=== PATIENT | male | born 1940 | race Caucasian/White ===

== ENCOUNTER 2019-01-20 14:16 | Inpatient (IN) ==
[2019-01-20 15:31] LABS: BASO# 0.02 X1000 (0.0-0.2); BASO% 0.2 % (0.0-0.8); HEMATOCRIT 31.4 % (42.0-52.0); HEMOGLOBIN 10.1 g/dL (14.0-18.0); IMM GRAN# 0.02 X1000 (0.0-0.04); IMM GRAN% 0.2 % (0.0-0.5); LYMPH% 5.5 % (20.5-51.1); MCH 28.8 PG (27-31); MCHC 32.2 g/dL (33-37); MCV 89.5 FL (81-99); MONO# 0.84 X1000 (0.11-0.59); MONO% 7.7 % (1.7-9.3); MPV 10.6 FL (7.4-10.4); NEUT# 9.42 X1000 (1.4-6.5); NEUT% 86.4 % (42.2-75.2); PLT 176 X1000 (130-400); RBC 3.51 XMIL (4.7-6.1); RDW 14.3 % (11.5-14.5)
[2019-01-20 16:12] LABS: ALB/GLOB RATIO 1.4; CALCIUM 10.1 mg/dL (8.8-10.2); CREATININE 5.5 mg/dL (0.7-1.2); POTASSIUM 5.3 mmol/L (3.5-5.1); TOTAL BILIRUBIN 1.08 mg/dL (0.20-1.00); TOTAL PROTEIN 6.8 g/dL (6.3-8.3)
[2019-01-20] MEDS ORDERED: LASIX IV ONE (16:23)
[2019-01-20] MEDS ORDERED: EMLA CREAM TOP ONE (16:24)
[2019-01-20] MEDS ORDERED: NITROGLYCERIN TOP ONE (16:27)
--- NOTE | 2019-01-20 16:49 | Diag Imaging Result Doc PS360 ---
EXAM: CHEST-PORTABLE HISTORY: increased work of breathing TECHNIQUE: Portable chest single view COMPARISON: None. FINDINGS: The lungs are well expanded. The heart is enlarged. The vessels are distended. Sternal wires are present. There are no infiltrates. No effusion identified. IMPRESSION: Cardiomegaly with pulmonary edema. Electronically signed by Giovany Love 01/20/2019 4:46 PM
[2019-01-20] MEDS ORDERED: LASIX 200 MG in NS 25 ML IV ONE (17:00)
[2019-01-20] MEDS: ASPIRIN PO SCH (17:15)
[2019-01-20 17:36] LABS: IRON SATURATION 5 %; TIBC 249 ug/dL; TOTAL IRON 13 ug/dL (53-167); UNBOUND IRON 236 ug/dL (112-346)
--- NOTE | 2019-01-20 17:49 | HISTORY AND PHYSICAL ---
TAG METER OPERATOR: Dr. Marv Chavarria. CHIEF COMPLAINT: Shortness of breath. HISTORY OF PRESENT ILLNESS: Mr. Escobar is a 78-year-old male with a history of CKD-[address] Chavarria. He had a fistula placed by Dr. Neives here in October in preparation for likely dialysis. Over the past week he has been having more shortness of breath and decreased appetite, and this became acutely worse this morning. He was reportedly having some shortness of breath, to the point where they felt they needed to call Dr. Chavarria, who ultimately directed the patient here. He denies lower extremity edema or CP but does endorse significant orthopnea and ESTRELLA. In the ER he had labs and diagnostics done which revealed a creatinine of 5.5 with very mild hyperkalemia at 5.3 with modest acidosis and a gap of 17, and he is slightly anemic. Chest x-ray and EKG are pending. Dr. Chavarria has been notified the patient will be admitted for further treatment and evaluation. PAST MEDICAL HISTORY: 1. CKD stage 5. 2. Coronary artery disease status post CABG. 3. Carotid artery disease status post left carotid endarterectomy. 4. Hypertension. 5. Hyperlipidemia. 6. Gout. 7. GERD. PAST SURGICAL HISTORY: Carotid endarterectomy, CABG and AV fistula placement. SOCIAL HISTORY: He quit smoking multiple years ago. No current tobacco, alcohol or drug use. He is . is at the bedside. FAMILY HISTORY: Mother from "hardening of the arteries." Father was hit by a train. REVIEW OF SYSTEMS: Fourteen-point review of systems was obtained and found to be negative with the exception of the HPI. ALLERGIES: No known drug allergies. HOME MEDICATIONS: Yet to be compiled by the nursing staff. PHYSICAL EXAMINATION: VITAL SIGNS: Blood pressure 166/77, heart rate 94, respiratory rate 21, O2 saturation 93% on room air, temperature 98.9. GENERAL: This is an elderly, somewhat [id number] 78-year-old male lying in the hospital bed in no acute distress. NEUROLOGIC: Somewhat lethargic but opens his eyes easily to verbal stimuli. He is oriented. He follows commands without focal deficits. HEENT: Head is atraumatic and normocephalic. His pupils are equal, round, and reactive to light. His oral mucosa is moist. Trachea is midline. There is no JVD. CHEST: Very mild crackles in the bases with diminished air flow. CV: Regular rate and rhythm. S1 and S2 noted. GI: Soft, nondistended, nontender. Bowel sounds are positive. EXTREMITIES: No edema. Pulses 1+ bilaterally. DIAGNOSTIC DATA: Chest x-ray and EKG are pending. WBCs 10.9, hemoglobin 10.1, hematocrit 31.4, platelet count 176. Sodium 135, potassium 5.3, chloride 101. CO2 is 17, anion gap 17, BUN 61, creatinine 5.5, glucose 111. Calcium 10.1. Bilirubin 1.08. AST 12, ALT 12, alkaline phosphatase 102, albumin 4. ASSESSMENT/PLAN: 1. Chronic kidney disease stage 5 with mild volume overload: The patient will be admitted. We will consult Dr. Chavarria for initiation of dialysis. He is slightly acidotic and slightly hyperkalemic, but this should be adjusted appropriately with dialysis. He also has mild anemia. We will check iron studies and treat accordingly. Monitor his input and output. 2. Volume overload and dyspnea on exertion: Likely secondary to his chronic kidney disease; however, he does have a history of coronary artery disease and does not appear to have had a cardiac workup in some time. Will check his cardiac enzymes, EKG and echocardiogram. We have also ordered a chest x-ray. Volume management per nephrology. 3. Coronary artery disease: The patient denies any chest pain. We will make sure he is on at least a baby aspirin. Continue his home medications and check a lipid panel in the morning. 4. Hypertension. Continue home medications. Nitroglycerin has been added by Nephrology. 5. Hyperlipidemia: Stable. Continue home medications. 6. Deep venous thrombosis prophylaxis with sequential compression devices. Further recommendations to follow. Dictated by MARIA DEL ROSARIO Encarnacion for Jason Schofield MD cc: MARIA DEL ROSARIO Encarnacion Agree with above. The following is my own face to face assessment and evaluation. Patient with slowly progressing kidney disease presenting with dyspnea and orthopnea getting worse over the last week. on exam, no lower extremity edema but does have some bibasilar crackles. given orthopnea and cardiac history, will assess for cardiac etiology while nephrology prepares to dialyze patient. [facility]
[2019-01-20 17:55] LABS: FERRITIN 225 ng/mL (30-400)
--- NOTE | 2019-01-20 18:00 | NEPHROLOGY CONSULTATION ---
DATE: 01/20/2019 REASON FOR ADMISSION: Increased work of breathing with lethargy. REASON FOR CONSULT: End-stage renal disease with assistance with medical management. CONSULTING PHYSICIAN: Dr. Flores with the hospitalist following. HISTORY OF PRESENT ILLNESS: Mr. Escobar is a 78-year-old white male who is known to our outpatient services for chronic kidney disease stage 5. The patient has had a left upper arm AV fistula placed in [place] [address] Jean Marie Gaitan. He has been followed monthly in our office with monthly labs. His last creatinine within our office was at 6.3 with a GFR of less than 6%. He has known heavy proteinuria, but no complaints of uremic symptoms on his last visit on 12/30/2018. The patient states he had just had labs drawn yesterday. He had been eating well, woke up in the middle of the night with increased work of breathing. He denies any chest pain with this. He denies any lower extremity swelling. He has not eaten all day long, did not feel like taking his medications, has been very lethargic, unable to get comfortable. He denies any fever or chills. No nausea, vomiting or diarrhea. No hematochezia, hemoptysis or hematuria. States that his urine output has increased and he has been going quite often. Due to these findings, his called our office earlier this a.m. requesting consult in regards with how she should proceed. The patient lives in [place]. He does see Dr. Valentin, his roofing laborer in the [place]. Due to these findings and patient now becoming symptomatic with possible uremic symptoms, we have advised them to either transport him to [facility] or if it was emergent to call an ambulance, transport him to the nearest hospital for evaluation and stabilization and then transport to [facility] so we could initiate hemodialysis. ended up calling back stating that she was going to wait for her daughter and bring him into [facility] for monitoring. He arrived this afternoon. Dr. Chavarria had received a phone call from Dr. Flores indicating that the patient was currently in the hospital. In the emergency room, he continued to exhibit increased work of breathing. Slight indication that he was using some accessory muscles for breathing. Saturation on room air was 92- 94%. His blood pressure was fairly stable, though very, very weak and would close his eyes and drift during communication with his . PAST MEDICAL HISTORY: He is known for chronic kidney disease stage 5, hypertension, gout, edema, hyperlipidemia, anemia of chronic disease, heavy proteinuria, hyperparathyroidism and coronary artery disease. PAST SURGICAL HISTORY: Noted CABG in 2013, left upper arm fistula placed in October [address] Gaitan. SOCIAL HISTORY: He is . He lives in [place] with his spouse. He has family who are attentive to his care. He is an ex-smoker. Denies any alcohol or illicit drug use. The patient had his flu vaccine in August 2018 and his pneumonia vaccine several years ago. His is unsure of the date. CURRENT DRUG ALLERGIES: Listed as no known drug allergies. HOME MEDICATIONS: Listed in our office: Norvasc 5 mg daily, Coreg 12.5 mg b.i.d., clonidine 0.1 mg b.i.d., aspirin 81 mg daily, Lipitor 20 mg 1/2 tablet daily, Lasix 40 mg daily, ergocalciferol 50,000 units p.o. weekly, losartan 100 mg p.o. daily, allopurinol 100 mg p.o. daily, Integra Plus 125 mg/1 mg p.o. daily, allopurinol 100 mg p.o. daily. REVIEW OF SYSTEMS: Times 10 with pertinent positives listed above in the HPI. VITAL SIGNS: Patient's most recent vital signs in the emergency room: Last temperature 98.7, blood pressure 166/77, heart rate 104, respirations are 24. On room air he was 94%.. LAB: Sodium 135, potassium 5.3, chloride 101, CO2 17, BUN 61, creatinine 5.5, glucose 111. His anion gap is 17, calcium 10.1, albumin 4. White count 10.9, hemoglobin 10.1, hematocrit 31.4 with a platelet count of 176,000. The patient has had nothing indicated in or out during his hospitalization. Chest x-ray has been ordered, indicating cardiomegaly with current pulmonary edema. PHYSICAL EXAMINATION: General: This is a 78-year-old white male who is currently resting quietly in bed. He appears chronically ill. He is in no acute distress. Skin: Warm and dry. HEENT: Normocephalic, atraumatic. Conjunctiva is pale. He has FAITH. Mucous membranes are dry. Neck: Supple. Trachea midline. No evidence of JVD. Cardiovascular: Regular rate and rhythm. No murmur or gallop appreciated. Lungs: Diminished breath sounds with poor inspiratory effort, with some use of accessory muscles to his upper chest wall. He is currently on room air. Abdomen: Soft, nontender. Positive bowel sounds. Genitourinary: Not inspected. Patient states that he has been voiding. Extremities: He has no edema. No clubbing or cyanosis. Integumentary: No rashes or lesions evident. Neurologic: He is alert and oriented x3. ASSESSMENT AND PLAN: 1. Chronic kidney disease stage 5. Patient has exhibited uremic symptoms in the last 24 hours. Left upper arm fistula is intact with good palpable thrill. Due to these findings, we will plan to start dialysis in the morning. We will order EMLA cream to be placed 30 minutes prior to his treatment on his left upper arm fistula. 2. Electrolytes and acid-base balance. The patient has mild hyperkalemia. No indications for intervention. 3. Acidosis. The patient is mildly acidotic with a slight anion gap, again with correction on dialysis in the morning. 4. Anemia. This is acceptable. Hemoglobin of 10.1. 5. Pulmonary edema on chest x-ray with cardiomegaly. We will start an IV. We will saline lock it. We will plan to give 200 mg of Lasix IV push x 1 with plan for fluid volume control in the a.m. with dialysis. To assist with his breathing, we will place oxygen on him at 2 L nasal cannula to titrate as needed. We will place nitroglycerin 1 inch paste on the patient at this time and will re-evaluate in the morning. I would like to thank you for allowing us to follow with this patient. Dictated by MARIA DEL ROSARIO Johnson for Marv Chavarria MD Face to face encounter, data reviewed, discussed with Destin Mahan on 01/20/19. I agree with the above assessment and plan of care. cc: MARIA DEL ROSARIO Johnson MD [facility]
[2019-01-20 18:09] LABS: CK INDEX 19.6 (0.0-2.5); CK-MB 49.92 ng/mL (0.0-5.0); INR 1.1
[2019-01-20] MEDS: XOPENEX NEB INH SCH (18:43)
[2019-01-21] MEDS: XOPENEX NEB INH SCH ×7 (00:21→23:24)
[2019-01-21 02:04] LABS: CK INDEX 19.2 (0.0-2.5); CK-MB 65.75 ng/mL (0.0-5.0)
[2019-01-21] MEDS ORDERED: TIGHT: 0.2 ML/HR FOR DIALYSIS MISC PRN (06:12)
[2019-01-21] MEDS ORDERED: NS 2,000 ML MISC PRN (06:12)
[2019-01-21] MEDS ORDERED: HEPARIN IV PRN (06:12)
[2019-01-21 07:31] LABS: ALBUMIN 3.9 g/dL (3.5-5.0); CALCIUM 10.1 mg/dL (8.8-10.2); CREATININE 5.8 mg/dL (0.7-1.2); PHOSPHORUS 5.1 mg/dL (2.7-4.5)
--- NOTE | 2019-01-21 09:04 | NEPHROLOGY PROGRESS NOTE ---
DATE: 01/21/2019 TIME SEEN: 0650. SUBJECTIVE: Mr. Escobar is resting quietly in bed. Head of the bed is elevated. He states that he is still not feeling well. He remains short of breath. states that he was not eating his dinner yesterday. OBJECTIVE: Vitals: His most recent vital signs, temperature 98.9 degrees, blood pressure 166/92, heart rate 114, respirations 20, he is on 2 L nasal cannula, last recorded saturation 94%. General: This is a 78-year-old elderly white male. He is resting quietly in bed. He appears chronically ill. No acute distress. Skin: Warm and dry. HEENT: Normocephalic, atraumatic. Conjunctiva is pale. He has FAITH. Mucous membranes are dry. Neck: Supple. Trachea midline. Positive JVD. Cardiovascular: Regular rate and rhythm. He is slightly tachycardic. He has a systolic murmur. Lungs: Faint crackles bilaterally. Remains on O2 support. Abdomen: Soft, nontender, positive bowel sounds. Genitourinary: Not inspected. Patient has been voiding. Adequate amount documented. Extremities: 1+ lower extremity edema. He has a fistula to the left upper arm with good palpable thrill. Integumentary: Patient has no rashes or lesions. Neurological: He is alert and oriented x3. INPUT AND OUTPUT: He has had 180 in, 675 mL out to void. LABORATORY DATA: Sodium 141, potassium 5, chloride 104, CO2 17, BUN 68, creatinine 5.8, glucose is 100, anion gap of 20, calcium 10.1, phosphorus 5.1, albumin is 3.9. The patient has slightly elevated troponins. He has a previous hemoglobin of 10.1 on admission. ASSESSMENT AND PLAN: 1. Chronic kidney disease stage 5. Patient has exhibited uremic symptoms in the last 24 to 48 hours. We will plan to start dialysis this morning. He is ordered for EMLA cream to be applied to his fistula 30 minutes prior to going down for dialysis. We will place him on a 2 K bath he is to dialyze for 2 hours low flow. We will attempt to pull 1 to 2 L of ultrafiltration with plan for dialysis over the next 2 to 3 days. 2. Electrolytes and acid-base balance, again with correction on dialysis. 3. Anemia, this is acceptable. 4. Fluid volume overload. Patient's chest x-ray yesterday showed pulmonary edema. We had given him 200 mg of Lasix IV push. He remains on O2. We will plan for assist with dialysis today and over the next 3 days for his fluid volume level. I would like to thank you for allowing us to follow with this patient. Dictated by MARIA DEL ROSARIO Johnson for Marv Chavarria MD Face to face encounter, data reviewed, discussed with Destin Mahan on 01/21/19. I agree with the above assessment and plan of care. cc: MARIA DEL ROSARIO Johnson MD [facility]
[2019-01-21] MEDS: ASPIRIN PO SCH (10:45)
--- NOTE | 2019-01-21 11:55 | EKG Report ---
Test Performed on : 01/21/2019 11:48:08 AM Test Reason : ELEVATED TROPONIN Blood Pressure : / mmHG Vent. Rate : 106 BPM Atrial Rate : 106 BPM P-R Int : 212 ms QRS Dur : 106 ms QT Int : 336 ms P-R-T Axes : 024 035 167 degrees QTc Int : 446 ms Sinus tachycardia. with 1st degree AV block. Possible Left atrial enlargement Incomplete left bundle branch block Marked ST abnormality, possible lateral subendocardial injury Abnormal ECG No previous ECGs available Unconfirmed Result
[2019-01-21] MEDS ORDERED: LOPRESSOR PO SCH (15:00)
--- NOTE | 2019-01-21 15:16 | PROGRESS NOTE ---
DATE: 01/21/2019 INTERVAL HISTORY: The patient still with some orthopnea. Breathing fairly comfortable when he is still sitting up. No current chest pain, diaphoresis, fever, or chills. No new complaints. No acute events overnight. Patient does have trending troponin as below. REVIEW OF SYSTEMS: A 12 point Review of Systems is negative except as per interval history. LABORATORY: Sodium 141, potassium 5.0, bicarb 17, BUN 68, creatinine 5.8, glucose 100, and phosphorus 5.1. Initial troponin 0.6. The second troponin is 1.19, the third troponin 1.6. Lipid panel unremarkable. B12, folate, and TSH all unremarkable. EKG with ST depression in lateral leads specifically the 4, [address] depression in aVF. VITAL SIGNS: T-max 99.4 degrees, pulse 109, respirations 18, blood pressure 150/75, and O2 saturation 93 percent on 2 L by nasal cannula. PHYSICAL EXAMINATION: General: No acute distress. Vitals: As above. He does become somewhat short of breath with minimal exertion. HEENT: Normocephalic. Atraumatic. Moist mucous membranes. No cervical adenopathy. Cardiovascular: Minimally tachycardic but regular. No murmurs noted. Pulmonary: Mild bibasilar crackles remain. Otherwise lungs clear to auscultation bilaterally. Abdomen: Soft. Nontender and nondistended. Bowel sounds positive. Extremities: Peripheral pulses are intact, really no lower extremity edema. Neurologic: Cranial nerves grossly intact. No focal deficits identified. Psychiatric: Normal mood and affect. Awake, alert and oriented x3. Skin: No new rashes or lesions identified. ASSESSMENT AND PLAN: 1. CKD 5 with overload. The patient with slowly worsening of his chronic kidney disease, symptoms of orthopnea and dyspnea, possibly related to worsening kidney function versus cardiac dysfunction. Dr. Chavarria on board and planning to initiate dialysis for volume overload and metabolic acidosis. Continue to monitor input and output. 2. NSTEMI. The patient with symptoms of worsening orthopnea and dyspnea over the last week that may be related to kidney dysfunction, but some concern for cardiac etiology. Initial troponin elevated at 0.6. This trended up since then to 1.6. EKG this morning showing ST depression in lateral leads. Echo ordered, but pending. Cardiology consulted last night. Recommendations pending. 3. Coronary artery disease. No chest pain but does have some symptoms concerning for heart failure as above. Continue aspirin and we will restart home statin. 4. Hypertension. We will restart home Norvasc and losartan. Hold home clonidine. Hold home Coreg for now given the possibility of decompensated heart failure, but based on echo results will likely resume in the next day or 2. 5. Hyperlipidemia. Continue on statin. 6. DVT prophylaxis. SCD's currently.
--- NOTE | 2019-01-21 15:40 | CONSULTATION ---
DATE OF CONSULTATION: 01/21/2019 IMPRESSION: 1. Abnormal troponin suggesting small non-ST elevation myocardial infarction. This is occurring in the setting of volume overload related to renal failure and history of previous coronary bypass surgery in 2004. Suspect likely secondary to demand ischemia from volume overload/wall strain in the setting of significant coronary atherosclerosis. 2. Volume overload/congestive heart failure in the setting of renal failure. 3. Atherosclerotic coronary disease with coronary bypass surgery 2004. 4. Hypertension. 5. Hyperlipidemia. 6. Atherosclerotic carotid disease with history of left carotid endarterectomy. RECOMMENDATIONS: 1. Continue beta niurka and increase as tolerated. We will resume Coreg. 2. Continue statin. 3. Echocardiography. 4. Agree with plans to pursue dialysis as soon as possible to address volume overload. This will hopefully diminish myocardial demand. 5. Ultimately patient will need re-evaluation of his coronary disease. HISTORY: This 78-year-old white male with past history of previous coronary bypass surgery 2004, chronic kidney disease stage V, hypertension, hyperlipidemia, and previous left carotid endarterectomy was admitted with several months of progressive tendency for shortness of breath. This has gotten worse in the last several days as he started to have orthopnea as well. His appetite is very poor. He has been found to have evidence of volume overload/congestive heart failure and deterioration in his renal function. He has been known to be progressing towards end- stage renal disease, and has a fistula placed already. Plans are for him to pursue dialysis today. He denies any chest pain. He has had some orthopnea for the last 3 days. He is normally followed by Dr. Valentin in [place] for his coronary disease. PAST MEDICAL HISTORY: 1. Atherosclerotic coronary disease with previous coronary bypass surgery 2004. 2. Atherosclerotic carotid disease with previous left carotid endarterectomy. 3. Chronic kidney disease stage V. 4. Hypertension. 5. Hyperlipidemia. 6. Gout. 7. Gastroesophageal reflux disease. PAST SURGICAL HISTORY: Also includes AV fistula placement. ALLERGIES: He has no known drug allergies. MEDICATIONS PRIOR TO ADMISSION: As listed. SOCIAL HISTORY: He quit smoking multiple years ago. He does not currently use tobacco or alcohol. He is . He lives in [place], [place]. FAMILY HISTORY: Positive for coronary disease. REVIEW OF SYSTEMS: Pulmonary: Noteworthy for progressive dyspnea, as well as some tendency for wheezing. Gastrointestinal: Negative. Constitutional: Noteworthy for malaise and poor appetite. Remaining review of systems negative/noncontributory with 14 total systems reviewed. PHYSICAL EXAMINATION: General: This is an older white male in no distress. Vital signs: Blood pressure 166/80, heart rate 109, oxygen saturation 97% on nasal cannula oxygen at 2 liters/minute. HEENT: Extraocular movements appear intact. Mucous membranes are moist. Neck: Supple. Jugular venous distention is evident consistent with elevated central venous pressure. Chest: Auscultation of the chest reveals a few bibasilar crackles. Cardiac Exam: Reveals a regular rate and rhythm without appreciable murmur or gallop. Abdomen: Soft. Bowel sounds audible. Extremities: Demonstrate mild pretibial edema. Neurologic exam: Reveals him to be alert and fully oriented. Speech is fluent. Moves all 4 extremities equally well. PERTINENT DATA: Twelve-lead EKG demonstrates sinus tachycardia with first degree AV block. Left atrial abnormality. Incomplete left bundle-branch block and ST abnormality, consider lateral ischemia. LABORATORY DATA: Includes a sodium 141, potassium 5.0, chloride 104, carbon dioxide 17. BUN 68, creatinine 5.8, glucose 100. White blood cell count 10.9, hematocrit 31.4, hemoglobin 10.1, platelet count 176. Initial troponin 0.607; followup troponin 1.6. Initial CPK 255; followup CPK 343. CPK MB initially 49.92 (index 19.6) with followup CPK MB 65.75 (MB index 19.2). Triglyceride 68, total cholesterol 103, LDL cholesterol 38, HDL cholesterol 56. TSH 1.46. cc: Henry Marie MD
--- NOTE | 2019-01-21 16:10 | ECHO REPORT ---
ORDER DATE: 01/20/2019 ECHOCARDIOGRAPHIC MEASUREMENTS: Interventricular septum 1.5 cm. Left ventricular posterior wall 1.5 cm. Diastolic diameter 4.8 cm. Left atrium 4.4 cm. Aorta 3.3 cm. SUMMARY OF THE 2-DIMENSIONAL IMAGING: Aortic valve leaflets are trileaflet. Mitral valve was normal. There is mitral annular calcification. There is left atrial enlargement. Tricuspid valve is normal. There is mild mitral regurgitation. Peak velocity across the aortic valve less than 2 m/sec. There is no aortic stenosis or regurgitation. There is mild tricuspid regurgitation. Peak velocity across the tricuspid valve was 2.5 m/sec. Definity was used to assess left ventricular systolic function. Normal left ventricular cavity size. There is concentric left ventricular hypertrophy with severely reduced systolic function, estimated ejection fraction of 25%. There is severe global hypokinesis, associated with diastolic dysfunction. cc: MD Doug Clements CRNP
[2019-01-21] MEDS: COREG PO SCH ×2 (18:15→22:07)
--- NOTE | 2019-01-21 19:39 | CONSULTATION ---
DATE OF CONSULTATION: 01/21/2019 HISTORY OF PRESENT ILLNESS: Rober Escobar is a 78-year-old white male who has end-stage renal disease and requires chronic hemodialysis. Dr. Gaitan placed a left forearm AV fistula which has flow but is not ready to be used. He needs acute dialysis, and we are asked to place a PermCath. PHYSICAL EXAMINATION: General: Mr. Rober Escobar is an older white male who does not feel well. He has no jaundice. No supraclavicular lymphadenopathy. No shortness of breath. Heart: Regular rate. Lungs: Clear. Abdomen: Soft, nontender, without palpable mass. He has a left- sided fistula. Rectal: Not performed. Extremities: He does have palpable peripheral pulses. No peripheral edema. Neurological: He is alert and oriented x3 and appropriate. IMPRESSION: End-stage renal disease requiring hemodialysis. PLAN: PermCath tomorrow in surgery. I have discussed the procedure in detail with the patient, his and daughter at the bedside. They understand there are risks of this operation including infection, bleeding, pneumothorax, and nonfunctional PermCath. They want to proceed. cc: Sonya Gonzalez MD
[2019-01-21] MEDS: LIPITOR PO SCH (22:06)
[2019-01-22] MEDS: XOPENEX NEB INH SCH ×6 (03:42→23:01)
[2019-01-22] MEDS ORDERED: TIGHT: 0.2 ML/HR FOR DIALYSIS MISC PRN (05:57)
[2019-01-22] MEDS ORDERED: NS 2,000 ML MISC PRN (05:57)
[2019-01-22] MEDS ORDERED: HEPARIN IV PRN (05:57)
[2019-01-22 07:01] LABS: ALBUMIN 3.2 g/dL (3.5-5.0); CALCIUM 9.9 mg/dL (8.8-10.2); CREATININE 6.1 mg/dL (0.7-1.2); PHOSPHORUS 5.1 mg/dL (2.7-4.5); POTASSIUM 4.3 mmol/L (3.5-5.1)
[2019-01-22] MEDS ORDERED: DIPRIVAN 1% ONE (07:03)
[2019-01-22] MEDS ORDERED: XYLOCAINE-MPF 2% ONE (07:04)
[2019-01-22] MEDS ORDERED: HEPARIN ONE (07:07)
[2019-01-22] MEDS ORDERED: XYLOCAINE-MPF 1%/EPI 1:200,000 ONE (07:11)
[2019-01-22] MEDS ORDERED: NS 250 ML ONE (07:11)
[2019-01-22] MEDS ORDERED: FENTANYL ONE (07:21)
[2019-01-22] MEDS ORDERED: VERSED ONE (07:22)
[2019-01-22] MEDS ORDERED: NORVASC PO SCH ×2 (09:00)
[2019-01-22] MEDS ORDERED: KEFZOL 1 GM/D5W 1 GM/50 ML IVPB ONE (09:34)
--- NOTE | 2019-01-22 10:43 | OPERATIVE NOTE ---
PROCEDURE DATE: 01/20/2019 PREOPERATIVE DIAGNOSIS: End-stage renal disease requiring hemodialysis. POSTOPERATIVE DIAGNOSIS: End-stage renal disease requiring hemodialysis. PRINCIPAL PROCEDURE: Right internal jugular PermCath using ultrasound and fluoroscopy. SURGEON: Sonya Gonzalez MD. ANESTHESIA: Local with IV sedation. ESTIMATED BLOOD LOSS: 30 mL. DRAINS: None. INDICATIONS: Rober Hidalgo is a 78-year-old white male who has developed end-stage renal disease. Dr. Gaitan has placed a left forearm AV fistula that is still flowing but is not ready to use. He needs dialysis now and we were asked to place access. DESCRIPTION OF PROCEDURE: The patient was brought to the operating room, placed supine. His right neck, shoulder, and anterior chest were prepped and draped in a sterile field. He did receive Ancef prophylactically. We used local anesthetic at our incision sites. I began by using ultrasound to identify the right internal jugular vein between the 2 heads of the of the right sternocleidomastoid muscle. Using ultrasound guidance, I directed an 18-gauge needle into the right internal jugular vein and through this needle I placed a guidewire into the right side of the heart with the help of fluoroscopy. I made a counterincision on the anterior right chest and then used a blunt tunneler to tunnel a precurved 19 cm in total length PermCath from the chest incision to the neck incision. I then placed sequential dilators over the guidewire. Then I placed a dilator and sheath over the guidewire into the superior vena cava. The wire and dilator were removed and through the sheath, I placed the distal end of our pre curved PermCath and peeled away the sheath so that the catheter was in the superior vena cava. It was functioning well. Both ports were flushed with heparin and saline. Fluoroscopy suggested a good position of our catheter. I secured the catheter at its exit site anterior right chest with two 2-0 nylon stitches and I closed the small incision base of right neck, in layers, 1st layer 3-0 Vicryl stitches to close subcutaneous tissue. Skin was closed with a 4-0 Monocryl subcuticular stitch. Dressings were applied. He tolerated the procedure well with plans for him to go the recovery room and then return to the floor. cc: Sonya Gonzalez MD
[2019-01-22 13:18] LABS: HEPATITIS PROFILE ACUTE SEE COMMENTS
[2019-01-22] MEDS ORDERED: EMLA CREAM TOP PRN (14:08)
--- NOTE | 2019-01-22 14:22 | PROGRESS NOTE ---
DATE: 01/22/2019 INTERVAL HISTORY: The patient's orthopnea and dyspnea with minimal exertion remain essentially unchanged, possibly minimally improved with Lasix. The patient went for replacement of Vas-Cath for this morning as his previous dialysis catheter was not functioning correctly. This was performed without difficulty, and the patient was seen while on dialysis. No new complaints. No other acute events. REVIEW OF SYSTEMS: A 12 point review of systems negative except as per Interval History. LABORATORY DATA: Basic metabolic panel with bicarbonate 18, BUN 77, creatinine 6.1, phosphorus 5.1, albumin 3.2. Chemistry otherwise. VITALS: Temperature maximum 99.3 degrees, pulse 94, respirations 20, blood pressure 133/49, O2 saturation 96% on 2 L by nasal cannula DISCHARGE PHYSICAL EXAMINATION: General: No acute distress. Slightly sleepy but easily arousable. Vitals: As above. HEENT: Normocephalic, atraumatic. Moist mucus membranes. Neck: No cervical adenopathy. Cardiovascular: Regular rate and rhythm with no murmurs, rubs, or gallops. Pulmonary: Mild bibasilar crackles, essentially unchanged. Lungs otherwise clear to auscultation. Abdomen: Soft, nontender, nondistended. Bowel sounds positive. Extremities: Peripheral pulses intact. No lower extremity edema. Dialysis catheter in right upper chest noted. Neurologic: Cranial nerves grossly intact. No focal deficits identified. Psychiatric: Normal mood and affect. Slightly drowsy but awake and easily further arouses. Oriented x3. Skin: No new rash or lesions noted. ASSESSMENT AND PLAN: 1. Chronic kidney disease (CKD) stage 5 with volume overload. The patient with slow worsening of his chronic kidney disease with symptoms of orthopnea and dyspnea and a chest x-ray showing pulmonary edema. Has clinically apparent volume overload. Likely related to worsening kidney function, but may have a cardiac aspect as well as below. Dr. Chavarria on board and dialyzing today. Continue to monitor. Strict intakes and outputs. 2. Dhe-QS-evybmgxhw myocardial infarction (NSTEMI). Patient with symptoms of worsening orthopnea and dyspnea over the week prior to admission. Some concern for cardiac etiology. Initial troponin elevated at 0.6, which trended up to 1.6. EKG did show some ST depression in lateral leads. Cardiology on board and planning on conservative management for now. Echocardiogram showing an estimated ejection fraction of 25, so he may have a component of acute systolic congestive heart failure as well. Will likely need re-evaluation of his heart once volume overload has improved and kidney function addressed. 3. Coronary artery disease. No chest pain, but symptoms concerning for heart failure as above. EF 25. Continue aspirin and statin. Once patient is stabilized, we will add beta-niurka and MALOU or ARB. 4. Hypertension. Restarted home Norvasc. Holding home clonidine. Once kidneys are stabilized, then will likely restart home losartan. 5. Hyperlipidemia. Continue statin. 6. Deep vein thrombosis (DVT) prophylaxis. SCDs. DARYL
--- NOTE | 2019-01-22 15:12 | NEPHROLOGY PROGRESS NOTE ---
DATE: 01/22/2019 TIME SEEN: 0650. SUBJECTIVE: Mr. Escobar is resting quietly in bed. His is currently resting in the bed beside him. He states that he was unable to tolerate dialysis yesterday. He is scheduled to go to surgery this a.m. for placement of dialysis tunnel catheter and allow his fistula to rest and heal. He is n.p.o. OBJECTIVE: MOST RECENT VITAL SIGNS: Patient's last temperature 98.3 degrees, blood pressure 138/63, heart rate 93, respirations 18. He is currently on 2 L nasal cannula. Last recorded saturation 99%. He has had 500 in, he had 100 mL out to void. LABORATORY DATA: His sodium is 136, potassium 4.3, chloride 103, CO2 18, BUN 77, creatinine 6.1, glucose is 100. His anion gap is 15, calcium is 9.9. Phosphorus 5.1, albumin is 3.2. The patient continues to have an elevated troponin level yesterday of 1.6. Previous hemoglobin 10.1 on the . PHYSICAL EXAMINATION: General: This is a 78-year-old white male resting quietly in bed. He appears chronically ill, no acute distress. Skin: Warm and dry. HEENT: Normocephalic, atraumatic. Conjunctivae pale. He has FAITH. Mucous membranes are dry. Neck: Supple trachea midline. Continues with positive JVD. Cardiovascular: Regular rate and rhythm. He has an S4 present. Lungs: Clear to auscultation bilaterally, equal excursion on O2. Abdomen: Soft, nontender. Positive bowel sounds. Genitourinary: Not inspected. Patient has had minimal void. Extremities: Have trace edema. No clubbing or cyanosis. Integumentary: He has AV fistula to the left upper arm with good palpable thrill, though this is bruised. Neurological: Alert and oriented x3. ASSESSMENT AND PLAN: 1. Chronic kidney disease stage 5D. Patient is in need of starting hemodialysis. They had attempted to stick his AV fistula, yesterday after the initial stick, the patient had an infiltrate. [place] were pulled. Pressure was applied and he was sent back up to his room. Dr. Gonzalez has been notified to place a tunnel catheter today with plans to start hemodialysis immediately after this placement has been obtained. We will place him on a 2 K bath, he is to dialyze for 2 hours on a low flow. We will attempt to pull 1 to 2 L of ultrafiltration. 2. Electrolytes, acid-base balance with correction on dialysis. 3. Anemia. This remains low but stable. This is acceptable. 4. Fluid volume overload. Patient was treated initially with Lasix. We will plan for assistance with dialysis once tunnel catheter has been placed. I would like to thank you for allowing us to follow with this patient. Dictated by MARIA DEL ROSARIO Johnson for Marv Chavarria MD Face to face encounter, data reviewed, discussed with Destin Mahan on 01/23/19. I agree with the above assessment and plan of care. cc: MARIA DEL ROSARIO Johnson MD [facility]
[2019-01-22] MEDS: ASPIRIN PO SCH (15:16)
[2019-01-22] MEDS: TYLENOL PO PRN (18:26)
--- NOTE | 2019-01-22 18:45 | PROGRESS NOTE ---
DATE: 01/22/2019 SUBJECTIVE: Patient is seen just after dialysis. He reports feeling much better. He denies any chest discomfort or shortness of breath. OBJECTIVE: Vital signs: Blood pressure 133/49, heart rate 94, oxygen saturation 96%. Neck: Jugular distention cannot be appreciated. Chest: Clear to auscultation bilaterally. Cardiac Exam: Reveals a regular rate and rhythm without appreciable murmur or gallop. There is no evidence of peripheral edema. LABORATORY DATA: Sodium 136, potassium 4.3, chloride 103, carbon dioxide 18, BUN 17, creatinine 6.1, glucose 100, albumin 3.2. Echocardiography reports left ventricular ejection fraction approximately 25%. IMPRESSIONS: 1. Recent abnormal troponin suggesting a small non-ST elevation myocardial infarction which has occurred in the setting of significant volume overload in the setting of renal failure with history of previous coronary bypass surgery in 2004 and likely ischemic cardiomyopathy. Suspect likely this is related to demand ischemia from volume overload. 2. Severe ischemic cardiomyopathy. 3. Volume overload/congestive heart failure in setting of renal failure and severely depressed left ventricular systolic function. 4. Atherosclerotic coronary disease with previous coronary bypass grafting in 2004. 5. Hypertension. 6. Hyperlipidemia. 7. Atherosclerotic carotid disease with history of left carotid endarterectomy. RECOMMENDATIONS: 1. Continue beta-niurka, statin, and anti-platelet therapy. 2. Ultimately patient to be considered for re-evaluation of his coronary disease with possible cardiac catheterization/coronary angiography. It was seen most reasonable to delay this until after he has improved from the standpoint of volume overload and has been on dialysis consistently. cc: Henry Marie MD
[2019-01-22] MEDS: PERIDEX MT SCH (21:47)
[2019-01-22] MEDS: LIPITOR PO SCH (21:48)
[2019-01-23] MEDS: COREG PO SCH ×3 (01:44→22:06)
[2019-01-23] MEDS: XOPENEX NEB INH SCH ×6 (03:12→23:17)
[2019-01-23] MEDS: TYLENOL PO PRN ×2 (03:40→22:16)
[2019-01-23] MEDS ORDERED: HEPARIN IV PRN (05:55)
[2019-01-23] MEDS ORDERED: TIGHT: 0.2 ML/HR FOR DIALYSIS MISC PRN (05:55)
[2019-01-23] MEDS ORDERED: NS 2,000 ML MISC PRN (05:55)
[2019-01-23 07:16] LABS: ALBUMIN 3.1 g/dL (3.5-5.0); CALCIUM 8.8 mg/dL (8.8-10.2); CREATININE 5.2 mg/dL (0.7-1.2); PHOSPHORUS 5.4 mg/dL (2.7-4.5); POTASSIUM 4.5 mmol/L (3.5-5.1)
[2019-01-23] MEDS: ASPIRIN PO SCH (09:48)
[2019-01-23] MEDS: PERIDEX MT SCH ×2 (09:49→22:06)
--- NOTE | 2019-01-23 10:35 | Diag Imaging Result Doc PS360 ---
EXAM: CHEST-PORTABLE 01/23/2019 HISTORY: pulmonary edema, dyspnea TECHNIQUE: AP portable at 1025 COMMENT: There is a double-lumen catheter in the right internal jugular with its tip in the superior vena cava. There is cardiomegaly. There are sternotomy wires. Compared to 01/20/2019 there has been clear improvement in the pulmonary edema previously present. No additional abnormalities are present. IMPRESSION: Improved pulmonary edema. Electronically signed by Chente Avilez 01/23/2019 10:33 AM
--- NOTE | 2019-01-23 13:29 | PROGRESS NOTE ---
DATE: 01/23/2019 INTERVAL HISTORY: The patient is status post dialysis yesterday, and dyspnea and orthopnea much improved today. No new complaints. No acute events overnight. REVIEW OF SYSTEMS: A 12 point review of systems negative except as per interval history. LABORATORY: Sodium 143, BUN 62, creatinine 5.2, potassium 4.5, phosphorus 5.4, troponin 3.6. VITALS: T-max 99.2, pulse 84, respirations 18, blood pressure 139/58, and 02 sat 100% on room air. PHYSICAL EXAMINATION: General: No acute distress. Vitals: As above. HEENT: Normocephalic atraumatic. Moist mucous membranes. No cervical adenopathy. Cardiovascular: Regular rate and rhythm. No murmurs, rubs or gallops noted. Pulmonary: Still very slight bibasilar crackles, but improved from previous. Lungs otherwise clear to auscultation. Abdomen: Soft. Nontender. Nondistended. Bowel sounds positive. Extremities: Peripheral pulses are intact. No clubbing, cyanosis or edema. Dialysis catheter in right upper chest noted. Neurologic: Cranial nerves grossly intact. No focal deficits identified. Psychiatric: Normal mood and affect. Awake, alert and oriented x3. Skin: No new rashes or lesions noted. ASSESSMENT AND PLAN: 1. CKD 5 with volume overload. The patient is status post dialysis yesterday. Symptoms significantly improved after dialysis. Patient with dialysis catheter in place as his fistula was not able to be used. Awaiting further recommendations from Nephrology. 2. Acute systolic congestive heart failure. Patient with volume overload, initially felt to be due to worsening of his chronic kidney disease, but echocardiogram now showing an EF of 20 to 25. Therefore, likely a strong aspect of acute systolic congestive heart failure as well. Does appear to be much improved after dialysis. The patient already on a beta niurka, and will plan to restart home Cozaar prior to discharge. 3. Qnz-RT-sqetbrnpu myocardial infarction (NSTEMI). Patient with dyspnea, orthopnea, as above. Echocardiogram showing new congestive heart failure, likely ischemic cardiomyopathy. Cardiology with possible plans for further evaluation with heart catheterization once dialysis situation and volume overload are stabilized. 4. Coronary artery disease. Continue aspirin and statin. Continue beta niurka. We will restart ARB prior to discharge. 5. Hypertension. Restart home Norvasc and Coreg. Holding home clonidine. Blood pressure control reasonable so far. Likely restarting Cozaar as above. 6. Hyperlipidemia. Continue statin. 7. Deep vein thrombosis prophylaxis. SCD's.
--- NOTE | 2019-01-23 18:04 | NEPHROLOGY PROGRESS NOTE ---
DATE: 01/23/2019 SUBJECTIVE: He feels like is improved following his dialysis. Less shortness of breath. Appetite is perhaps better. OBJECTIVE: Vital Signs: Blood pressure 139/58, heart rate 84, respiration 18, afebrile. General: No acute distress. Skin: Warm and dry. Conjunctivae are pink. Neck: Neck vein distention is not visible. Heart: Regular. No gallops. Lungs: Equal. No crackles. Abdomen: Soft, nontender. Bowel sounds present. Extremities: Have minimal edema today. No clubbing or cyanosis. Still large hematoma overlying his fistula. IMPRESSION: Chronic kidney disease 5D. Continue dialysis today. I encouraged him to be up and ambulate today and we will observe his response. Unfortunately, his troponin is rising still. He has been evaluated by Cardiology and we appreciate their input. cc: Marv Chavarria MD
[2019-01-23] MEDS: LIPITOR PO SCH (22:06)
[2019-01-24] MEDS: XOPENEX NEB INH SCH ×6 (03:11→23:02)
[2019-01-24 07:29] LABS: ALBUMIN 3.2 g/dL (3.5-5.0); CALCIUM 9.3 mg/dL (8.8-10.2); CREATININE 4.2 mg/dL (0.7-1.2); PHOSPHORUS 4.6 mg/dL (2.7-4.5); POTASSIUM 3.6 mmol/L (3.5-5.1)
[2019-01-24] MEDS: PERIDEX MT SCH ×2 (09:03→22:46)
[2019-01-24] MEDS: ASPIRIN PO SCH (09:04)
[2019-01-24] MEDS: COREG PO SCH ×2 (09:04→22:45)
[2019-01-24] MEDS ORDERED: NS 2,000 ML MISC PRN (09:05)
[2019-01-24] MEDS ORDERED: TIGHT: 0.2 ML/HR FOR DIALYSIS MISC PRN (09:05)
[2019-01-24] MEDS ORDERED: HEPARIN IV PRN (09:05)
--- NOTE | 2019-01-24 13:56 | PROGRESS NOTE ---
DATE: 01/24/2019 INTERVAL HISTORY: The patient's symptoms of dyspnea essentially resolved status post dialysis x2. No new complaints. No acute events overnight. REVIEW OF SYSTEMS: Twelve point review of systems, except as per interval history. LABORATORY STUDIES: Basic metabolic panel unremarkable aside from potassium 3.6, BUN 41, creatinine 4.2, albumin 3.2. Last troponin 3.66. VITALS: T-max 99.2 degrees, pulse 86, recently 18, blood pressure 139/51, O2 saturation 100% on room air. PHYSICAL EXAMINATION: General: No acute distress. Vitals: As above. HEENT: Normocephalic, atraumatic. Moist mucous membranes. Neck: No cervical adenopathy. Cardiovascular: Regular rate and rhythm. No murmurs, rubs, or gallops noted. Pulmonary: Bibasilar crackles essentially resolved. Lungs clear to auscultation. Abdomen: Soft, nontender, nondistended. Bowel sounds positive. Extremities: Peripheral pulses intact. No clubbing, cyanosis, or edema. Dialysis catheter in right upper chest noted. Neurologic: Cranial nerves grossly intact. No focal deficits identified. Psychiatric: Normal mood and affect. Awake, alert, oriented x3. Skin: No new rashes or lesions noted. ASSESSMENT AND PLAN: 1. Chronic kidney disease V. Volume overload. Patient is status post dialysis last 2 days. Symptoms essentially resolved after dialysis times two. The patient with a dialysis catheter in place on the right upper chest as his left arm fistula was not able to be used. Awaiting further recommendations by Nephrology. 2. Acute systolic congestive heart failure. Patient with volume overload, initially felt to be due to worsening chronic kidney disease, but echocardiogram showing ejection fraction of 20 to 25, so acute heart failure likely contributing. Volume status now much improved. Continue beta niurka and ARB. Cardiology consulted and further records pending. 3. Non-ST elevated myocardial infarction. Patient with dyspnea, orthopnea as above. Echocardiogram showing new systolic congestive heart failure, likely ischemic cardiomyopathy. Cardiology on board. Further records pending. Possible catheterization on Saturday, followed by dialysis. 4. Coronary artery disease. Continue aspirin and statin. Continue beta niurka. 5. Hypertension, reasonable control on current Norvasc, Coreg, and Cozaar. 6. Hyperlipidemia. Continue statin. 7. Deep vein thrombosis prophylaxis. Sequential compression devices.
--- NOTE | 2019-01-24 20:46 | CARDIOLOGY PROGRESS NOTE ---
DATE: 01/24/2019 CHIEF COMPLAINT: Shortness of breath. SUBJECTIVE: Mr. Escobar has noted significant improvement since dialysis treatments were started. He has already received 3 sessions of dialysis. He denies having any chest pain. OBJECTIVE: Vital Signs: Blood pressure 109/45, temperature 98.6, pulse 77, respirations 18. General: The patient is awake, alert and oriented, in no distress. HEENT: Unremarkable. Chest: Sounds relatively clear to auscultation and percussion. He has a catheter on the right side of the chest. Cardiovascular: Heart sounds regular and rhythmic. Soft systolic murmur. Abdomen: Nontender. Extremities: Showed no edema. Neurologic: Follows commands. Moves all 4 extremities. BLOOD WORK: Sodium 141, potassium 3.6, BUN 41, creatinine 4.2. Troponins started at 0.607 and have risen to 3.66. IMPRESSION: 1. Patient who presented with increasing dyspnea, probably uremic. He has started hemodialysis and is feeling better. 2. Chronic systolic heart failure. I doubt that he has developed an acute change in his left ventricular function. 3. Previous CABG, history of severe coronary heart disease, previous myocardial infarctions. 4. History of hypertension and hyperlipidemia. RECOMMENDATIONS: At this time I would suggest to continue the present course of therapy. I am not certain as to whether or not a heart catheterization is going to be beneficial to this patient. I will let Dr. Marie make a final determination as to whether or not it is appropriate to do it during this admission. We will see him as needed. cc: Malik Adams MD MTD
--- NOTE | 2019-01-24 20:57 | NEPHROLOGY PROGRESS NOTE ---
DATE: 01/24/2019 SUBJECTIVE: He is feeling much better. He has been out of bed. Shortness of breath is improved. He is on room air. OBJECTIVE: Vital Signs: Blood pressure 109/45, heart rate 77, respiration 18, afebrile. General: No acute distress. Skin: Warm and dry. Conjunctivae are pink. Neck: Neck veins are not distended. Heart: Regular. No gallops. No rubs. Lungs: Equal. No crackles or wheezes. Abdomen: Soft, nontender. Bowel sounds are present. Extremities: Have no edema, clubbing, or cyanosis. IMPRESSION: 1. Chronic kidney disease 5D. He had his 3rd consecutive dialysis treatment today without complication. Outpatient dialysis is arranged. 2. Chest pain. Resolved. I understand imaging is planned for Saturday. We will follow. cc: Marv Chavarria MD
[2019-01-24] MEDS: LIPITOR PO SCH (22:45)
[2019-01-25] MEDS: XOPENEX NEB INH SCH ×6 (03:20→23:15)
[2019-01-25 07:07] LABS: ALBUMIN 3.1 g/dL (3.5-5.0); CALCIUM 9.3 mg/dL (8.8-10.2); CREATININE 3.5 mg/dL (0.7-1.2); POTASSIUM 3.7 mmol/L (3.5-5.1)
--- NOTE | 2019-01-25 09:59 | CARDIOLOGY PROGRESS NOTE ---
DATE: 01/25/2019 CHIEF COMPLAINT: Shortness of breath, abnormal cardiac enzymes. SUBJECTIVE: Mr. Escobar is generally feeling better. He is resting comfortably. Not having any dyspnea. No chest pain. He continues to improve with dialysis treatments. OBJECTIVE: Blood pressure is 149/70, temperature 97.9, pulse 85, respirations 20. The patient is awake, alert, oriented, in no distress. HEENT is unremarkable. Chest sounds clear to auscultation and percussion. Heart sounds are regular and rhythmic. I believe he does have a systolic murmur over the aortic area. He has a sternotomy scar. Abdomen is nontender. Extremities showed no edema. Neurologic: Follows commands. Moves all 4 extremities. Gait is normal. DIAGNOSTIC DATA: Blood work shows sodium 140, potassium 3.7, BUN is 31, creatinine 3.5, albumin is 3.1. IMPRESSION: 1. The patient presented to the hospital with increasing dyspnea with advanced renal failure. He is on hemodialysis now, and he is improving. 2. The patient has systolic heart failure.This may be acute on chronic. I have reviewed records from Dr. Clay Valentin's office. Last echocardiogram on record was done several years ago, and back then his ejection fraction was normal. Now his ejection fraction is significantly impaired. 3. Elevation of cardiac enzymes, possible non-ST myocardial infarction.progression of CAD is likely. 4. Severe coronary heart disease. Previous bypass surgery. 5. History of hypertension. 6. History of hyperlipidemia. RECOMMENDATIONS: Given the fact that his ejection fraction has become significantly impaired according to office records, I believe it is reasonable to propose doing a left heart catheterization on him once his renal function is stabilized. Occlusion of saphenous vein grafts is highly likely. I will let Dr. Marie organize the procedure at his convenience. At this time, the patient is clinically stable from the cardiac viewpoint. cc: Malik Adams MD [facility]PITALJane
[2019-01-25] MEDS: COREG PO SCH ×2 (10:10→21:47)
[2019-01-25] MEDS: PERIDEX MT SCH ×2 (10:11→21:47)
[2019-01-25] MEDS: COZAAR PO SCH (10:11)
[2019-01-25] MEDS: ASPIRIN PO SCH (10:11)
--- NOTE | 2019-01-25 13:04 | PROGRESS NOTE ---
DATE: 01/25/2019 INTERVAL HISTORY: The patient's dyspnea remains essentially resolved. No new complaints. No acute events overnight. REVIEW OF SYSTEMS: A 14-point review of systems is negative, except as per interval history. LABORATORY DATA: BUN 31, creatinine 3.5, potassium 3.7, sodium 140, phosphorus 4, albumin 3.1. VITALS: T-max 98.8 degrees, pulse 85, respirations 20, blood pressure 141/56, O2 saturation 98% on room air. PHYSICAL EXAMINATION: General: No acute distress. Vitals: As above. HEENT: Normocephalic, atraumatic. Moist mucous membranes. No cervical adenopathy. Cardiovascular: Regular rate and rhythm. No murmurs, rubs, or gallops noted. Pulmonary: Clear to auscultation bilaterally. Abdomen: Soft, nontender, nondistended. Bowel sounds positive. Extremities: Peripheral pulses intact. No clubbing, cyanosis, or edema. Dialysis catheter in the right upper chest noted. Neurologic: Cranial nerves grossly intact. No focal deficits identified. Psychiatric: Normal mood and affect. Awake, alert, and oriented x3. Skin: No new rashes or lesions identified. ASSESSMENT AND PLAN: 1. End-stage renal disease, volume overload: The patient is status post dialysis x3 days. Symptoms essentially resolved at this point. The patient with dialysis catheter placed in right upper chest as his left arm fistula was not able to be used. Patient likely to start regular Saturday, Saturday, Saturday dialysis now. 2. Acute systolic congestive heart failure. Patient with volume overload on admission, initially felt to be strictly due chronic kidney disease but echocardiogram is showing new decreased ejection fraction of 20 to 25, so acute heart failure likely contributing, now essentially resolved with dialysis. Continue beta niurka and ARB. Increased statin to high-intensity. 3. Non-ST elevation myocardial infarction. Patient with dyspnea and orthopnea as above. Echocardiogram with systolic congestive heart failure, likely ischemic cardiomyopathy. Cardiology on board. Further recommendations pending. Possible catheterization on Saturday but awaiting final decisions. 4. Coronary artery disease. Continue aspirin, statin, and continue beta niurka. 5. Hypertension, reasonable control so far on current medications. Continue to monitor. 6. Hyperlipidemia. Continue statin. 7. Deep vein thrombosis prophylaxis. Sequential compression devices.
[2019-01-25] MEDS: LIPITOR PO SCH (21:47)
[2019-01-26] MEDS: XOPENEX NEB INH SCH ×5 (05:01→19:30)
[2019-01-26] MEDS ORDERED: HEPARIN 1000 UNITS/NS 2,000 UNIT/1,000 ML IV.SOLN ONE (09:53)
[2019-01-26] MEDS: COZAAR PO SCH (09:56)
[2019-01-26] MEDS: COREG PO SCH ×2 (09:56→20:36)
[2019-01-26] MEDS: PERIDEX MT SCH ×2 (09:56→20:36)
[2019-01-26] MEDS: ASPIRIN PO SCH (09:56)
[2019-01-26] MEDS ORDERED: CLAVE PUMP SET NO FILTER 12260 ONE (10:36)
[2019-01-26] MEDS ORDERED: NS 250 ML ONE (10:36)
[2019-01-26] MEDS ORDERED: VERSED ONE (10:36)
[2019-01-26] MEDS ORDERED: MORPHINE ONE (10:36)
--- NOTE | 2019-01-26 11:18 | NEPHROLOGY PROGRESS NOTE ---
DATE: 01/26/2019 SUBJECTIVE: The patient is sitting up on the side of the bed. He has been placed NPO in anticipation of going for a left heart catheterization today. OBJECTIVE: Vital Signs: Temperature 98.6 degrees, pulse 81, respiratory rate 20, blood pressure 122/53. Intake 580 mL, output 160 mL. General: Elderly gentleman sitting up on the side of the bed. Awake and alert, no acute distress. HEENT: Normocephalic, atraumatic. FAITH. Neck: Supple. No JVD. Cardiovascular: Regular rate and rhythm. Pulmonary: He is clear bilaterally. Equal excursion. Abdomen: Soft. Positive bowel sounds. : Not inspected. Extremities: No clubbing, cyanosis or edema. Integumentary: Skin is warm and dry. LABORATORY DATA: Pending. ASSESSMENT AND PLAN: 1. Chronic kidney disease 5D. His outpatient dialysis plan will be Saturday, Saturday, Saturday. He is to go for left heart catheterization today. We will make a decision afterwards if we will dialyze today. He can dialyze tomorrow and then continue with outpatient plan if needed. 2. Chest pain, resolved. See #1 for plan. 3. Fluid volume. He does not appear overloaded at this time. 4. Electrolytes, acid-base balance. I do not have labs today, but these have been stable since dialysis. Dictated by MARIA DEL ROSARIO Casillas for Marv Chavarria MD Face to face encounter, data reviewed, discussed with So Burr on 01/26/19. I agree with the above assessment and plan of care. cc: Marv Chavarria MD [facility]
[2019-01-26] MEDS ORDERED: ZOFRAN IV PRN (12:07)
[2019-01-26] MEDS ORDERED: XANAX PO PRN (12:07)
[2019-01-26] MEDS ORDERED: KLOR-CON PO PRN ×3 (12:07)
[2019-01-26] MEDS ORDERED: DULCOLAX PR PRN (12:07)
[2019-01-26] MEDS ORDERED: PERCOCET-5 PO PRN (12:07)
[2019-01-26] MEDS ORDERED: TYLENOL PO PRN (12:07)
[2019-01-26] MEDS ORDERED: CEPACOL SORE THROAT LOZENGE MT PRN (12:07)
[2019-01-26] MEDS ORDERED: NITROGLYCERIN SL PRN (12:07)
[2019-01-26] MEDS ORDERED: MAGNESIUM SULFATE 2 GM in STERILE WATER INJ. 50 ML IV PRN ×4 (12:07)
[2019-01-26] MEDS ORDERED: MILK OF MAGNESIA PO PRN (12:07)
[2019-01-26] MEDS ORDERED: RESTORIL PO PRN (12:07)
[2019-01-26] MEDS ORDERED: MAGNESIUM SULFATE 3 GM in NS 100 ML IV PRN (12:07)
--- NOTE | 2019-01-26 12:33 | EKG Report ---
Test Performed on : 01/26/2019 12:22:32 PM Test Reason : post C Blood Pressure : / mmHG Vent. Rate : 078 BPM Atrial Rate : 078 BPM P-R Int : 266 ms QRS Dur : 114 ms QT Int : 430 ms P-R-T Axes : 072 041 182 degrees QTc Int : 490 ms Sinus rhythm. with 1st degree AV block. Anterior infarct , age undetermined ST & T wave abnormality, consider inferolateral ischemia Abnormal ECG When compared with ECG of 21-JAN-2019 11:48, ST no longer depressed in Anterior leads Unconfirmed Result
[2019-01-26] MEDS ORDERED: NS 1,000 ML IV SCH (13:00)
[2019-01-26] MEDS: NS NEB INH SCH (15:24)
--- NOTE | 2019-01-26 15:55 | CARDIAC CATH REPORT ---
PROCEDURE NAME: - PROCEDURE PERFORMED: Left heart catheterization with selective coronary geography, saphenous vein graft to the right coronary angiography, left internal mammary artery graft to left anterior descending coronary angiography, and left ventriculography. ENTRY SITE: Right femoral artery. CATHETERS USED: 5-Luxembourger JL4, JR4, 3DRC, OZIEL, and angled pigtail. TECHNIQUE: After intravenous sedation with Versed and morphine, local anesthesia with lidocaine was applied over right femoral artery. Arterial access was established for placement of a 5- Luxembourger sheath in the right femoral artery using modified Seldinger technique. Selective coronary angiography was performed along with angiography of saphenous vein graft to the right coronary artery and angiography of the left internal mammary artery graft to the left anterior descending coronary. Saphenous vein graft to branch of left circumflex coronary could not be selectively engaged but was evidently occluded based on left ventriculography. Left heart catheterization and left ventriculography were subsequently performed. Upon completion of procedure, arterial sheath was removed from right femoral artery and hemostasis facilitated with manual pressure. The patient tolerated the procedure without apparent complications. FINDINGS: HEMODYNAMICS: Aortic pressure 126/44, left ventricular pressure 136 over EDP of 12. Comments on hemodynamics: There is no significant gradient across the aortic valve demonstrated on pullback from the left ventricle. ANGIOGRAPHY: 1. Left ventriculogram. Left ventricle is borderline enlarged with estimated left ejection fraction approximately 40% in the setting of global hypokinesis. There is also akinesis of the mid to apical inferior wall on PEREZ projection. There is no significant mitral regurgitation. 2. Left main coronary artery. Damping of the pressure waveform was evident on engaging the left main coronary artery. Angiography of the left main coronary demonstrated diffuse moderate (70%) stenosis throughout the left main coronary artery with associated calcification. 3. Left anterior descending coronary artery. The left anterior descending coronary artery demonstrates severe diffuse coronary atherosclerosis proximally with approximately 80% to 90% segmental stenosis proximally. The proximal to mid left anterior descending coronary artery also demonstrated diffuse atherosclerosis with approximately 80% narrowing. First diagonal branch demonstrated very severe atherosclerosis with greater 95% proximal stenosis and a 2nd area of stenosis at mid vessel of greater than 95%. Second diagonal branch also demonstrated severe atherosclerotic narrowing at midvessel greater than 95%. After origin of second diagonal branch, the left anterior descending coronary artery is occluded. 4. Left circumflex coronary artery. The left circumflex coronary gives rise to a very small first obtuse marginal and a medium to large 2nd obtuse marginal. Left circumflex coronary subsequently continues in AV groove, terminating as a large posterior lateral branch. The first obtuse marginal demonstrates severe diffuse atherosclerosis. Proximally in the first obtuse marginal is a focal very severe (greater than 95%) stenosis. The left circumflex coronary artery just after the first obtuse marginal demonstrates moderate (60% to 70%) focal stenosis. The proximal region of the large posterolateral branch also demonstrates a moderate 50% stenosis. 5. Right coronary artery. The dominant right coronary artery demonstrates a severe diffuse coronary atherosclerosis. The ostium of the right coronary demonstrates a severe (80%) narrowing. The proximal through mid right coronary demonstrates a very severe diffuse coronary atherosclerosis of 80% to 90% diameter narrowing. The midportion of the right coronary artery demonstrates a very severe (95%) stenosis. There is diffuse atherosclerosis in the distal right coronary artery. 6. Saphenous vein graft to the right coronary artery. This graft is occluded. 7. Saphenous vein graft to the left circumflex coronary system. This graft was not selectively engaged, but it appears to be occluded based on left ventriculography. 8. Left internal mammary artery graft to left anterior descending coronary artery. This graft is patent and inserts into the mid left anterior descending coronary. There is severe (80%) diffuse atherosclerosis in the left anterior descending coronary. CONCLUSIONS: 1. Moderately reduced left ventricular systolic function. 2. Right dominant coronary anatomy as described with severe diffuse coronary atherosclerosis involving all 3 major coronary territories and moderate to severe atherosclerotic narrowing, moderate calcified diffuse atherosclerosis of the left main coronary artery. 3. Patent left internal mammary artery graft to left anterior descending coronary. Other bypass conduits occluded. RECOMMENDATIONS: Maximum medical management of patient's coronary atherosclerosis appears to be the best course of treatment, given the severe diffuse nature of patient's coronary atherosclerosis. cc: Henry Marie MD [facility]
--- NOTE | 2019-01-26 17:45 | PROGRESS NOTE ---
DATE: 01/26/2019 INTERVAL HISTORY: The patient's respiratory complaints remain resolved for dialysis times 3 days. Currently NPO for possible heart cath to be followed by dialysis. No new complaints. No acute events overnight. REVIEW OF SYSTEMS: A twelve point Review of Systems negative other than per interval history. LABORATORY: BUN 31, creatinine 3.5, potassium 3.7, sodium 140, phosphorus 4, albumin 3.1. VITALS: T-max 98.8, pulse 78, respirations 16, blood pressure 152/68, and O2 saturation 100 percent on room air. PHYSICAL EXAMINATION: General: No acute distress. Vitals: As above. HEENT: Normocephalic, atraumatic. Moist mucous membranes. No cervical adenopathy. Cardiac: Regular rate and rhythm. No murmurs, rubs, or gallops. Pulmonary: Clear to auscultation bilaterally. Abdomen: Soft. Nontender. Nondistended. Bowel sounds are positive. Extremities: Peripheral pulses are intact. No clubbing, cyanosis or edema. Catheter remains in the right upper chest. Neurologic: Cranial nerves grossly intact. No focal deficits identified. Psychiatric: Normal mood and affect. Awake, alert and oriented. Skin: No new rashes or lesions identified. ASSESSMENT AND PLAN: 1. End stage renal disease with volume overload. Patient is status post dialysis for 3 days. The symptoms have resolved. Patient with dialysis catheter in right upper chest as his left heart fistula was not able to be used. Patient to start regular Saturday, Saturday, Saturday dialysis. 2. Acute systolic congestive heart failure. The patient with volume overload on admission partially because of worsening chronic kidney disease, but echocardiogram showing new decrease in ejection fraction to 20 to 25. Now, essentially resolved with dialysis. Continue beta niurka and ARB. Increased statin to high density. 3. NSTEMI. Patient with dyspnea and orthopnea as above. Echogram with new systolic congestive heart failure likely ischemic cardiomyopathy. Cardiology on board. Patient NPO for possible heart catheterization later today. 4. Coronary artery disease. Continue aspirin, statin, and beta niurka. 5. Hypertension reasonable assist control so far on current medications. Continue to monitor. 6. Hyperlipidemia. Continue statin and DVT prophylaxis and SCD's.
[2019-01-26] MEDS: LIPITOR PO SCH (20:36)
[2019-01-27] MEDS: XOPENEX NEB INH SCH ×6 (03:04→23:27)
[2019-01-27] MEDS ORDERED: NS 2,000 ML MISC PRN (05:50)
[2019-01-27] MEDS ORDERED: HEPARIN IV PRN (05:50)
[2019-01-27] MEDS ORDERED: TIGHT: 0.2 ML/HR FOR DIALYSIS MISC PRN (05:50)
[2019-01-27] MEDS: NS NEB INH SCH ×2 (07:15→15:33)
[2019-01-27 07:23] LABS: HEMATOCRIT 29.6 % (42.0-52.0); HEMOGLOBIN 9.1 g/dL (14.0-18.0); MCH 27.5 PG (27-31); MCHC 30.7 g/dL (33-37); MCV 89.4 FL (81-99); MPV 10.8 FL (7.4-10.4); RBC 3.31 XMIL (4.7-6.1); RDW 14.1 % (11.5-14.5); WBC 8.32 X1000 (4.8-10.8)
--- NOTE | 2019-01-27 07:27 | NEPHROLOGY PROGRESS NOTE ---
DATE: 01/27/2019 SUBJECTIVE: He is sitting up on room air. No complaints. Hoping for discharge. He states he has been ambulatory without difficulty. OBJECTIVE: Vital Signs: Blood pressure 149/51, heart rate 83, respirations 16, afebrile. Generally: No acute distress. Skin: Warm and dry. Eyes: Conjunctivae are pink. Neck: Neck veins are not distended. Heart: Regular. No gallops. Lungs: Equal. No crackles. Abdomen: Soft, nontender. Bowel sounds present. Extremities: No edema, clubbing or cyanosis. IMPRESSION: Chronic kidney disease 5D. He appears euvolemic and his electrolytes and acid base are being well managed. He will have dialysis this morning and then he can be discharged from my perspective to attend his outpatient dialysis appointment at [facility]. cc: Marv Chavarria MD
[2019-01-27] MEDS: COREG PO SCH ×3 (09:00→20:35)
[2019-01-27] MEDS: ASPIRIN PO SCH (09:00)
[2019-01-27] MEDS: COZAAR PO SCH (09:01)
[2019-01-27] MEDS: PERIDEX MT SCH ×3 (09:01→20:35)
--- NOTE | 2019-01-27 18:26 | PROGRESS NOTE ---
DATE: 01/27/2019 SUBJECTIVE: Patient is resting comfortably on bed. OBJECTIVE: Vital signs: Temperature 98.6, pulse 70, respiratory rate 18, blood pressure is 116/42, oxygen saturation 100%. HEENT: Atraumatic, normocephalic. Cardiovascular: S1, S2. Respiratory system: Has evidence of good air entry bilaterally. Abdomen: Soft, nontender. No masses felt. Extremities: No evidence of edema. Central nervous system: No obvious focal deficit noted. LABS: WBC 8.32, hematocrit is 29.6 with a platelet count of 253. ASSESSMENT AND PLAN: 1. End-stage renal disease with volume overload. Continue hemodialysis as recommended by Nephrology. 2. Acute systolic heart failure. Follow recommendation of Cardiology. 3. Non ST elevation myocardial infarction/coronary artery disease. The patient did have a cardiac catheterization done yesterday. Continue recommendation of Cardiology. 4. Hypertension. Continue current antihypertensive regimen. 5. Hyperlipidemia. Continue statin. cc: Glenn Michelle MD
[2019-01-27] MEDS: LIPITOR PO SCH ×2 (19:39→20:35)
--- NOTE | 2019-01-27 19:40 | PROGRESS NOTE ---
DATE: 01/27/2019 SUBJECTIVE: Patient continues without chest discomfort or dyspnea on room air. He relates feeling well. OBJECTIVE: Vital Signs: Blood pressure 116/42, heart rate 73, oxygen saturation 100% on room air. Neck: There is no significant jugular venous distention. Chest: Clear to auscultation. Cardiac: Exam was a regular rate and rhythm without appreciable murmur or gallop. Musculoskeletal: Right groin is free of hematoma. Extremities are without edema. IMPRESSION: 1. Severe ischemic heart disease with recent small non ST elevation myocardial infarction probably provoked by volume overload in the setting of severe diffuse coronary atherosclerosis as demonstrated on coronary angiography. 2. Ischemic cardiomyopathy. Left ventricular ejection fraction on ventriculogram was approximately 40%. There seems to be improvement since patient has gotten some volume off. 3. End-stage renal disease. Dialysis recently initiated. 4. Hyperlipidemia. 5. Hypertension. RECOMMENDATIONS: 1. Continue current cardiovascular regimen. 2. Continue current Lipitor. 3. The patient appears clinically stable from a cardiac standpoint to be discharged soon. I will plan on seeing him again in approximately 2 weeks after hospitalization. cc: Henry Marie MD
--- NOTE | 2019-01-27 21:55 | ECHO REPORT ---
ORDER DATE: 01/27/2019 SUMMARY: 1. Limited 2-dimensional echocardiography performed for followup of left ventricular systolic function. 2. Normal left ventricular chamber size with mild concentric left hypertrophy is demonstrated. Estimated left ejection fraction is approximately 40% to 45%. There is hypokinesis of the basal and mid inferior wall. There is hypokinesis of the mid anterior wall and mid anteroseptal region. cc: Henry Marie MD
[2019-01-28] MEDS: XOPENEX NEB INH SCH ×3 (02:36→11:50)
[2019-01-28] MEDS ORDERED: TIGHT: 0.2 ML/HR FOR DIALYSIS MISC PRN (08:02)
[2019-01-28] MEDS ORDERED: NS 2,000 ML MISC PRN (08:02)
[2019-01-28] MEDS ORDERED: HEPARIN IV PRN (08:02)
[2019-01-28] MEDS: PERIDEX MT SCH (11:46)
[2019-01-28] MEDS: COREG PO SCH (11:47)
[2019-01-28] MEDS: ASPIRIN PO SCH (11:57)
[2019-01-28] MEDS: COZAAR PO SCH (11:58)
[2019-01-28 12:03] VITALS: BP 131/49
--- NOTE | 2019-01-28 14:18 | DISCHARGE SUMMARY ---
ADMISSION DATE: 01/20/2019 DISCHARGE DATE: 01/28/2019 PRINCIPAL DIAGNOSIS: End-stage renal disease [*]with volume overload. SECONDARY DIAGNOSES: 1. Tna-UQ-fqiunbmvm myocardial infarction (PR). 2. Coronary artery disease. 3. Hypertension. 4. Hyperlipidemia. DISCHARGE MEDICATIONS: INCOMPLETE REPORT -- DICTATION STOPS HERE. cc: Glenn Michelle MD
--- NOTE | 2019-01-28 14:24 | DISCHARGE SUMMARY ---
ADMISSION DATE: 01/20/2019 DISCHARGE DATE: 01/28/2019 PRINCIPAL DIAGNOSIS: Volume overload related to end-stage renal disease. SECONDARY DIAGNOSES: 1. Gwt-ET-syihpykue myocardial infarction. 2. Coronary artery disease. 3. Hypertension. 4. Hyperlipidemia. DISCHARGE MEDICATIONS: Include the followin. Amlodipine 5 mg p.o. daily. 2. Allopurinol 300 mg p.o. daily. 3. Atorvastatin 20 mg p.o. daily. 4. Coreg 12.5 mg p.o. twice a day. 5. Clonidine 0.1 mg p.o. at bedtime. 6. Nexium 40 mg p.o. daily. 7. Lasix 40 mg p.o. daily. 8. Cozaar 100 mg p.o. daily. 9. Aspirin 81 mg p.o. daily 10. Integra Plus capsule 1 daily. CONSULTATIONS DONE DURING THIS HOSPITAL STAY: Cardiology, Dr. Dawit Adams. Nephrology, Dr. Marv Chavarria. HOSPITAL COURSE: Mr. Rober Escobar presents to the hospital because of shortness of breath. He is a 78-year-old and has a history of chronic kidney disease. He had a fistula placed in October in preparation for likely dialysis. Over the past week past before presentation, he had become short of breath and also has had a decrease in appetite. The patient was thought to have volume overload, as an x-ray of the chest showed evidence of cardiomegaly with pulmonary edema. The patient was seen by the Nephrology team and was placed on hemodialysis. He was also noted to have [id number] OR, and he was seen by the Cardiology team. He had a cardiac catheterization done on 01/26/2019. Cardiac catheterization showed a moderately reduced left ventricular systolic function with a right dominant coronary anatomy with severe diffuse coronary atherosclerosis involving all 3 major vessels territories and also moderate to severe atherosclerotic lesion and there is also moderate calcified diffuse atherosclerosis of the left main and left internal mammary artery graft to the left anterior descending coronary [*]bypass conduits occluded. The plan was to maximize medical treatment. The patient has done well and will be discharged home today. Today is 01/28/2019. DIET: Renal. ACTIVITY: As tolerated. DISCHARGE INSTRUCTIONS: He is expected to take his discharge medications as noted above. cc: Glenn Michelle MD
--- NOTE | 2019-01-28 18:42 | NEPHROLOGY PROGRESS NOTE ---
DATE: 01/28/2019 SUBJECTIVE: Patient currently undergoing hemodialysis. No complaints. He is to go home later today. OBJECTIVE: Vital Signs: As per chart. General: Elderly gentleman sitting up in bed. Awake, alert, no acute distress. HEENT: Normocephalic, atraumatic. FAITH. Neck: Supple. No JVD. Cardiovascular: Regular rate and rhythm. Pulmonary: Clear bilaterally. Abdomen: Soft, positive bowel sounds. Genitourinary: Not inspected. Extremities: No clubbing, cyanosis, edema. Integumentary: Skin is warm and dry. LABORATORY DATA: Please see chart for complete list. ASSESSMENT AND PLAN: 1. Chronic kidney disease 5 D. We dialyzed this patient on a short treatment today, as we anticipate he will be discharged home. He can continue with his dialysis at the [facility]. 2. Non ST-elevation myocardial infarction/coronary artery disease, followed by Cardiology. He did have a cardiac cath. 3. Electrolytes, acid-base balance anemia. These have been stable and have been treated with dialysis appropriately. Dictated by MARIA DEL ROSARIO Casillas for Marv Chavarria MD Data reviewed, discussed with So Burr on 01/28/19. I agree with the above assessment and plan of care. cc: Marv Chavarria MD [facility]
--- NOTE | 2019-02-01 09:45 | PROVIDER DOCUMENTATION ---
This chart was entered by Todd Del Cid Scribe, acting as scribe for Ernesto Flores MD. HPI-General Adult - General Chief Complaint: For Procedure Stated Complaint: DIALYSIS Time Seen by Provider: 01/20/19 15:09 Source: patient, family () Allergies/Adverse Reactions: Patient Allergies Allergy/AdvReac Type Severity Reaction Status Date / Time No Known Allergies Allergy Verified 09/30/18 13:25 Home Medications: Home Medication List Medication Instructions Recorded Confirmed Last Taken Type Allopurinol 300 mg PO DAILY 09/30/18 01/20/19 01/20/19 History Amlodipine [Norvasc] 5 mg PO DAILY 09/30/18 01/20/19 01/20/19 History Aspirin 81 mg PO DAILY 09/30/18 01/20/19 01/20/19 History Atorvastatin Calcium [Lipitor] 20 mg PO DAILY 09/30/18 01/20/19 01/19/19 History Carvedilol [Coreg] 12.5 mg PO BID 09/30/18 01/20/19 01/19/19 History Clonidine [Catapres] 0.1 mg PO HS 09/30/18 01/20/19 01/19/19 History Esomeprazole [Nexium] 40 mg PO DAILY 09/30/18 01/20/19 01/20/19 History Furosemide [Lasix] 40 mg PO DAILY 09/30/18 01/20/19 01/19/19 History Losartan Potassium [Cozaar] 100 mg PO DAILY 09/30/18 10/06/18 10/05/18 06:00 History Iron Fum,Ps Cmp/Vit C/Niacin 1 ea PO 01/20/19 Unknown History [Integra Capsule] Iron Fum,Ps/Folic/Bcomp,C No.9 1 ea PO DAILY 01/20/19 01/20/19 01/18/19 History [Integra Plus Capsule] - History of Present Illness -Gen Adult Nature of Presenting Problems: Pt is a 78 y/o M presents to the ED with SOB, weakness, and lack of appetite. The reports pt had a fistual placed a couple of months ago in preparation for dialysis. The says she called dr Edwards and he sent pt to the ED and requested a call from the physician when seen for intention of care. Location of Pain/Injury: reports: generalized (weakness) Pain Radiation: reports: no radiation Severity: reports: moderate Onset/Duration: reports: gradual Timing: reports: getting worse Context/Activities at Onset: reports: none Modifying Factors: improves with: nothing Associated Symptoms: reports: loss of appetite, shortness of breath, weakness. denies: back/neck pain, diaphoresis, diarrhea, fever/chills Similar Symptoms Previously?: Yes Recently seen or treated by another doctor?: Yes Review of Systems - Adult - REVIEW OF SYSTEMS - ADULT Constitutional: reports: other (weakness). denies: chills, fever Eyes: reports: no symptoms reported Ears, Nose, Mouth & Throat: reports: no symptoms reported Cardiovascular: denies: chest pain, edema, palpitations Respiratory: reports: shortness of breath. denies: cough Gastrointestinal: denies: abdominal pain, nausea, vomiting Genitourinary: reports: no symptoms reported Musculoskeletal: reports: muscle aches. denies: back pain, neck pain Integumentary: reports: no symptoms reported Neurological: denies: dizziness/vertigo, headache/migraines Psychiatric: reports: no symptoms reported Endocrine: reports: no symptoms reported Hematologic/Lymphatic: reports: no symptoms reported Allergic/Immunologic: reports: no symptoms reported All Other Systems: Reviewed and Negative Past History - Adult - PAST MEDICAL HISTORY-ADULT Review of Records: reports: Old Records Reviewed, Nursing Assessment Review, Medications Reviewed - SOCIAL HISTORY Smoking: non-smoker, quit greater than 1 year Living Situation: family Physical Exam-General - PHYSICAL EXAM-ADULT Initial Vital Signs Reviewed: Yes - CONSTITUTIONAL General Appearance: appears well, alert, no apparent distress - EYES Eyes: PERRL/EOMI, pink conjunctivae - HEAD, EARS, NOSE, MOUTH & THROAT HENMT: moist mucous membranes, normal ENT inspection, pharynx normal - NECK Neck: non-tender, full range of motion, supple, normal inspection - RESPIRATORY Respiratory: no pleuratic chest pain, no respiratory distress, crackles (bilateral bases worse on the right) - CARDIOVASCULAR Cardiovascular: normal peripheral pulses, tachycardia - GASTROINTESTINAL (ABDOMEN) Abdominal Exam: normal bowel sounds, non tender, soft - MUSCULOSKELETAL Back Exam: normal inspection, no CVA tenderness, no vertebral tenderness Extremity: normal range of motion, non-tender, normal gait, normal inspection - SKIN Integumentary: normal color, normal turgor, warm/dry - NEUROLOGIC Neurologic: grossly normal, no motor/sensory deficits - PSYCHIATRIC Psych/Mental Status: normal mood/affect, normal thought content, normal thought process, oriented x 3 Progress - PLAN OF CARE/RESULTS Progress/Plan/Lab Results: Vital Signs - 8 hr 01/20/19 14:18 Temperature 98.9 F Pulse Rate 101 H Respiratory Rate 18 Blood Pressure 152/71 O2 Sat by Pulse Oximetry 98 Orders Category Date Time Status CBC WITH DIFF [HEME] Stat Lab 01/20/19 15:10 Uncollected CMP [COMPREHENSIVE METABOLIC PANEL] [CHEM] Stat Lab 01/20/19 15:10 Uncollected Result Diagrams: 01/27/19 05:00 01/28/19 06:19 - CONSULTS/PCP/HOSPITALIST Notification #1 *Consult/PCP/Hospitalist*: Dr Edwards-Renal Time Discussed: 15:38 Reason/Comments: Plan of care Consult Disposition: other (admit to the hospitalist and consult him) #2 Consult: Hospitalist- Spoke with Edmund Time Discussed: 16:25 Reason/Comments: admission Consult Disposition: Admit (accepts) Departure - Departure Date of Disposition Decision: 01/20/19 Time of Disposition Decision: 17:00 DIAGNOSIS: End stage renal disease Disposition: ADMITTED INPATIENT 09 Certified Medical Emergency: Emergent Condition: Stable - Critical Care Note This patient required my direct & personal management of CC.: No Attestation - Physician/ DARSHAN Attestation The physician spent face to face time with patient:: Yes Advanced Practice Provider documentation review:: Supervising physician onsite and consulted in the evaluation and care of this patient. The physician did have a face to face encounter with the patient. This chart was documented by the indicated scribe, (Todd Del Cid Scribe) and accurately reflects the services I performed and decisions made by me, Ernesto Jimenes MD, as attested by the provider's signature.
== END 2019-01-28 15:06 | disposition home or self-care (01) | DRG 280 ==
LOC: ED 14:16 → SUATTDRO 14:17 → 4N 14:17 → 3S 01-26 11:12 → 3N 01-28 00:11
PROVIDERS: ATTEND Internal Medicine
CPT/HCPCS: 71010; 71045; 77001; 80053; 80061; 80069; 80074; 82550; 82553; 82565; 82607; 82728; 82746; 83540; 83550; 83721; 83735; 84443; 84484; 85025; 85027; 85610; 93005; 93010; 93306; 93308; 93459; 94640; 94760; 94761; 96365; 99285; A9270; C1750; C8929; J0690; J1644; J1940; J2250; J2270; J3010; J7030; J7050; Q9957; Q9967